=== PATIENT | female | born 1985 | race Two or more races ===

== ENCOUNTER 2019-01-19 20:41 | Emergency (ER) | payer OTHER ==
[2019-01-19] MEDS ORDERED: NS 0.9% 1000 ML** 1,000 ML IV ONE (21:03)
--- NOTE | 2019-01-19 21:07 | ED ---
GI/ HPI - HPI Summary HPI Summary: A 33 y/o female presents to [facility] with a chief complaint of vaginal bleeding for the past three days. She also c/o lower abdominal pain. At triage she rated her pain as an 8/10 in severity. She says that her LNMP was started 01/09/27 then ended abruptly at 01/13/19. Then on 01/16/19 she said that her vaginal bleeding started again and that the bleeding was different and she may have bled a clot. She notes that she had similar symptoms in May 2018 when she had an ectopic in [place]. She denies a Hx of HTN or DM, and denies taking any medications. She has a FHx of HTN and reports EtOH use occasionally on the weekends. - History of Current Complaint Chief Complaint: EDAbdPain Time Seen by Provider: 01/19/19 21:03 Stated Complaint: HEAVY BLEEDING PER PT Hx Obtained From: Patient Onset/Duration: Started Days Ago, Still Present Timing: Constant, Lasting Days Severity: Severe Current Severity: Severe Vaginal Bleeding Description: Clots Pain Intensity: 8 - out of 10 Location of Pain: Other - lower abdominal pain Pain Characteristics: Unable to describe Associated Signs and Symptoms: Positive: Abdominal Pain. Negative: Fever Aggravating Factor(s): Nothing Alleviating Factor(s): Nothing - Allergy/Home Medications Allergies/Adverse Reactions: Allergies Allergy/AdvReac Type Severity Reaction Status Date / Time No Known Allergies Allergy Verified 01/19/19 20:47 PMH/Surg Hx/FS Hx/Imm Hx Endocrine/Hematology History: Denies: Hx Diabetes Cardiovascular History: Denies: Hx Hypertension Sensory History: Denies: Hx Deafness EENT History: Denies: Hx Deafness Infectious Disease History: No Infectious Disease History: Denies: Traveled Outside the [place] in Last 30 Days - Family History Known Family History: Positive: Hypertension - grandmother Negative: Diabetes - Social History Alcohol Use: Occasionally - on the weekend Hx Substance Use: No Substance Use Type: Reports: None Hx Tobacco Use: No Smoking Status (MU): Never Smoked Tobacco Review of Systems Negative: Fever Positive: Abdominal Pain Positive: other - positive: vaginal bleeding All Other Systems Reviewed And Are Negative: Yes Physical Exam - Summary Physical Exam Summary: Appearance: Well-appearing, Well-nourished, lying in bed comfortably Skin: Warm, dry, no obvious rash Eyes: sclera anicteric, no conjunctival pallor ENT: mucous membranes moist, pharynx appears normal Neck: Supple, nontender Respiratory: Clear to auscultation, no signs of respiratory distress Cardiovascular: Normal S1, S2. No murmurs. Normal distal pulses in tibial and radial bilaterally. Abdomen: Soft, lower abdominal tenderness without peritoneal signs, normal active bowel sounds present Musculoskeletal: Normal, Strength/ROM Intact Neurological: A&Ox3, awake and alert, mentation is normal, speech is fluent and appropriate Psychiatric: affect is normal, does not appear anxious or depressed Triage Information Reviewed: Yes Vital Signs On Initial Exam: Initial Vitals Temp Pulse Resp BP Pulse Ox 97.9 F 79 18 128/73 97 01/19/19 20:45 01/19/19 20:45 01/19/19 20:45 01/19/19 20:45 01/19/19 20:45 Vital Signs Reviewed: Yes Diagnostics - Vital Signs Vital Signs Temp Pulse Resp BP Pulse Ox 01/19/19 20:45 97.9 F 79 18 128/73 97 - Laboratory Result Diagrams: 01/19/19 21:16 01/19/19 21:16 Lab Statement: Any lab studies that have been ordered have been reviewed, and results considered in the medical decision making process. Re-Evaluation - Re-Evaluation First Eval Re-Evaluation Time: 22:29 GIGU Course/Dx - Course Course Of Treatment: A 33 y/o female presents to [facility] with a chief complaint of vaginal bleeding for the past three days. She also c/o lower abdominal pain. The physical exam revealed lower abdominal tenderness without peritoneal signs. In the ED course the patient was given Sodium Chloride IV. Blood work and chemistries obtained and are WNL. The patient will be discharged and follow up with Dr. Mackey. The patient is agreeable with this plan. - Diagnoses Provider Diagnoses: Dysfunctional uterine bleeding Discharge - Sign-Out/Discharge Documenting (check all that apply): Patient Departure - DC Patient Received Moderate/Deep Sedation with Procedure: No - Discharge Plan Condition: Good Disposition: HOME Patient Education Materials: Dysfunctional Uterine Bleeding (ED) Referrals: Cristina Mackey MD [Medical Doctor] - 4 Days (if not improving) Additional Instructions: Your blood test was negative, which essentially rules out an ectopic . - Billing Disposition and Condition Condition: GOOD Disposition: Home - Attestation Statements Document Initiated by Scribe: Yes Documenting Scribe: Vishal Katz Provider For Whom John is Documenting (Include Credential): David Devi MD Scribe Attestation: I, Vishal Katz, scribed for David Devi MD on 01/20/19 at 0157. Scribe Documentation Reviewed: Yes Provider Attestation: The documentation as recorded by the Vishal ashford accurately reflects the service I personally performed and the decisions made by me, David Devi MD Status of Scribe Document: Viewed
[2019-01-19 21:46] LABS: ABS Lymphocytes 2.6 10^3/ul (1.0-4.8); ABS Monocytes 0.4 10^3/ul (0-0.8); ABS Neutrophils 4.3 10^3/ul (1.5-7.7); Eosinophil % 0.5 %; Hematocrit 38 % (35-47); Hemoglobin 12.7 g/dL (12.0-16.0); Mean Corpuscular HGB Conc 34 g/dL (31-36); Mean Corpuscular Hemoglobin 31 pg (27-31); Mean Corpuscular Volume 92 fL (80-97); Mean Platelet Volume 7.8 fL (7.4-10.4); Nucleated Red Blood Cells % 0.1; Platelet Count 240 10^3/uL (150-450); Red Blood Count 4.08 10^6 /uL (3.70-4.87); Red Cell Distribution Width 13 % (10-15); White Blood Count 7.4 10^3/uL (3.5-10.8)
[2019-01-19 22:04] LABS: ALT 13 U/L (7-52); AST 18 U/L (13-39); Albumin 4.4 g/dL (3.2-5.2); Albumin/Globulin Ratio 1.4 (1-3); Alkaline Phosphatase 74 U/L (34-104); Anion Gap 7 mmol/L (2-11); BUN/Creatinine Ratio 33.9 (8-20); Blood Urea Nitrogen 19 mg/dL (6-24); CO2 Carbon Dioxide 23 mmol/L (22-32); Calcium 9.4 mg/dL (8.6-10.3); Chloride 109 mmol/L (101-111); EGFR African American 149.9 (>60); EGFR Non-African American 123.9 (>60); Globulin 3.1 g/dL (2-4); Glucose 95 mg/dL (70-100); Sodium 139 mmol/L (135-145); Total Protein 7.5 g/dL (6.4-8.9)
[2019-01-19 22:10] LABS: HCG Pregnancy < 0.60 mIU/mL
[2019-01-19 22:46] VITALS: BP 114/71
== END 2019-01-19 22:45 | disposition home or self-care (01) ==
LOC: ED 20:41
DX: N93.8 Other specified abnormal uterine and vaginal bleeding (principal); R10.9 Unspecified abdominal pain; N93.9 Abnormal uterine and vaginal bleeding, unspecified
CPT/HCPCS: 36415; 80053; 84702; 85025; 86850; 86900; 86901; 96360; 99282

== ENCOUNTER 2019-07-14 00:58 | Emergency (ER) | payer OTHER ==
--- OUTSIDE RECORDS SUMMARY | 2019-07-14 01:05 | XMS REPORT | Continuity of Care Document ---
:1985 Author Organization [facility] Address [address] [place] [address] Phone Care Team Providers Name Role Phone Bethany Perez Unavailable Unavailable Allergies, Adverse Reactions, Alerts Substance Reaction Status No Known Allergies Active Medications Medication Instructions Dosage Effective Dates Status Comments (start - stop) Metrogel Vaginal insert 1 - Active 0.75 % applicatorful by vaginal route qhs x5 RANITIDINE HCL Not Available - Active (unknown strength) Problems Condition Effective Dates (start - Clinical Status Comments stop) Pelvic and perineal pain Irregular menstruation, unspecified Human immunodeficiency virus [HIV] - counseling Encounter for test, result negative Pelvic and perineal pain Acute vaginitis Procedures Procedure Date No information Results Test Name Date and Time Measure Units Reference Range Abnormal Flag Status Comments No information Advance Directives Directive Yes / No Effective Date File Name No information Encounters Encounter Practice Location Reason(s) Diagnoses Date Provider Providers Description For Visit Copied on Encounter [facility] [place] [address] [place]. [facility] [address] [place], [address] [facility], , [place], [place], [address]. [id number], tel:[phone] tel:[phone] [facility]ineal [facility] [place] painIrregular 0-[address] Gregoria. [facility] menstruation, [address] unspecified [place], [address] [facility], , [place], [place], [address]. [id number], tel:[phone] tel: [phone] [facility] [place] immunodeficiency [address] Bethany. Provider: Sarah virus [HIV] [address] counseling[facility]ounter [facility], [address] [place] [address] [place] result [place], [address], [place], [place]vic [place], [place], [place]ine[place]ute [address]. [place], [address]. [id number], vaginitis tel: tel: [phone] tel: [phone] Family History Family Member Diagnosis Age At Onset No information Immunizations Vaccine Date Status Comments No information Payers Payer name Insurance type Covered green party ID Authorization(s) Drew GENTILE [facility] CI [id number] Social History Type Description Quantity Date Captured Comments Alcohol Use Details Unknown Caffeine Use Details Unknown Tobacco Use Status Unknown Smoking Status Never smoker Sex Female Vital Signs Date / Height Weight BMI Pulse Blood Temperature Respiratory Body Head BMI Pulse Inhaled Time: Rate Pressure Rate Surface Circumference percentile Ox Ox Area No information Chief Complaint And Reason For Visit No information Reason For Referral Reason For Referral No information Plan Of Treatment Date Type Action Status Referral Ordered: ordered Pelvic Ultrasound (related to Pelvic and perineal pain) Referral Ordered: ordered Referrals: Pelvic Ultrasound History Of Present Illness Encounter Date Complaint History Of Present Illness No information Functional Status Date Functional Assessment No information Medications Administered Medication Instructions Dosage Effective Dates (start - stop) Status Comments No information Instructions Date Instruction Additional Information No information Assessments Type Assessment Date No information Goals Health Concern Goal Type Priority Status Date No information Medical Equipment Description Device Attalla Device Identifier Effective Dates (start - stop ) Status No information Mental Status Date Cognitive Assessment No information Health Concerns Observation Date No information Concern Status Date No information
--- OUTSIDE RECORDS SUMMARY | 2019-07-14 01:05 | XMS REPORT | Continuity of Care Document ---
:1985 External Reference #:[id number] Author Name Carmen Turner PA-C Address [address] [place], [place] [address] Care Team Providers Name Role Phone Tracey Gomes NP Care Team Information Architectural Inspector [phone] Problems Active Problems Provider Date Weight decreased Carmen Turner PA-C Onset: 06/24/2019 Digestive symptom Carmen Turner PA-C Onset: 06/24/2019 Generalized abdominal pain Carmen Turner PA-C Onset: 06/24/2019 Social History Type Date Description Comments Sex Unknown Tobacco Use Start: Unknown Patient has never smoked Smoking Status Reviewed: 06/24/19 Patient has never smoked Allergies, Adverse Reactions, Alerts Description No Known Drug Allergies Medications Active Medications SIG Qnty Indications Ordering Provider Date Peg use as directed 4000ml R10.84 Laine 06/24/2019 3350/Electrolytes MD Ata 240gm Solution Rec Dicyclomine HCL 1-2 caps by mouth 270caps R10.84 Laine 06/24/2019 10mg up to 4 times a MD Ata Capsules day as needed for cramping/pain Nexium 1 by mouth every 30caps K29.00 Tracey Gomes NP 06/15/[address] Elizabeth 08/08 Take One Tablet Unknown 1-20mg-mcg By Mouth Every Tablets Day For 3 Weeks Then Take 1 Week Off Immunizations Description No Information Available Vital Signs Date Vital Result Comment 06/24/2019 8:13am Height 64.5 inches 5'4.50" Weight 173.00 lb BP Systolic 127 mmHg BP Diastolic 69 mmHg Heart Rate 63 /min BMI (Body Mass Index) 29.2 kg/m2 Results Test Acquired Date Facility Test Result H/L Range Note Lab Results 06/15/2019 N2N/CCD Import Amylase <pending> Lipase <pending> Procedures Description No Information Available Medical Devices Description No Information Available Encounters Description No Information Available Assessments Date Code Description Provider 06/24/2019 R10.84 Generalized abdominal pain Carmen Turner PA-C 06/24/2019 R19.4 Change in bowel habit Carmen Turner PA-C 06/24/2019 R63.4 Abnormal weight loss Carmen Turner PA-C Plan of Treatment Future Appointment(s):07/12/2019 9:00 am - Laine Berumen [facility] at [facility]06/24/2019 - RACHNA ChaparroCR10.84 Generalized abdominal painNew Medication:Peg 3350/Electrolytes 240 gm - use as directedDicyclomine HCL 10 mg - 1-2 caps by mouth up to 4 times a day as needed for cramping/painR19.4 Change in bowel mbezzW23.4 Abnormal weight loss Functional Status Description No Information Available Mental Status Description No Information Available Referrals Description No Information Available
--- OUTSIDE RECORDS SUMMARY | 2019-07-14 01:05 | XMS REPORT | Continuity of Care Document ---
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 [phone] Problems Description No Active Problems Social History Type Date Description Comments Sex Unknown Tobacco Use Start: Unknown Never Smoked Cigarettes ETOH Use Currently consumes "6 beers on alcohol Thursday" Recreational Drug Use Does Not Use Drugs Tobacco Use Start: Unknown Patient has never smoked Smoking Status Reviewed: 06/23/19 Patient has never smoked Exercise Type/Frequency Does not exercise Allergies, Adverse Reactions, Alerts Description No Known Drug Allergies Medications Active Medications SIG Qnty Indications Ordering Date Provider Vitamin D3 1 tablet daily, ok 90units Parisa Montilla, 04/13/2019 2000Unit to substitute any CNM Chewtabs form of tablet or chewable covered by insurance 08/08 1 by mouth every 63tabs Parisa Montilla, 04/13/2019 1-20mg-mcg day CNM Tablets Ranitidine HCL 1 tab by mouth Unknown 150mg once or twice a Tablets day as needed for reflux Curcumin 95 Unknown 500mg Capsules Grape Seed Extract Unknown 30mg Capsules Medications Administered in Office Medication SIG Qnty Indications Ordering Provider Date PT SCRN Tbco Id as Non User Sharla Medrano MD 06/23/2019 Injection PT SCRN Tbco Id as Non User Parisa Montilla CNM 04/13/2019 Injection Immunizations Description No Information Available Vital Signs Date Vital Result Comment 06/23/2019 1:15pm BP Systolic 120 mmHg BP Diastolic 64 mmHg Height 63.25 inches 5'3.25" Weight 173.00 lb BMI (Body Mass Index) 30.4 kg/m2 Last Menstrual Period [id number] Parity 3 04/13/2019 1:59pm BP Systolic 106 mmHg BP Diastolic 64 mmHg Height 63.25 inches 5'3.25" Weight 168.00 lb BMI (Body Mass Index) 29.5 kg/m2 Results Test Acquired Date Facility Test Result H/L Range Note Laboratory test 04/13/2019 [facility] Cytology SEE RESULT [address] [place] [address] BELOW [phone] GC/Chlamydia 04/13/2019 [facility] Chlamydia Negative [place] [address] trachomatis Asia [phone] Neisseria gonorrhoeae (GC) Asia Negative Negative 1 SEE RESULT BELOW Name: GIANNI DESHAWN RING : [address]: Parisa Montilla CNM Acct: [id number] Unit: [id number] AGE: 33 Location: [facility] Re04/13/19 SEX: F Status: REG REF SPEC: [id number] FELIX: 04/13/19-[address] [facility] [address]: Parisa Montilla CNM REQ: [id number] RECD: 04/14/19-1124 STATUS: KISHAN FALL DR: Eva Primary Care Phys,NOPCP _ ORDERED: TP IMAGE ANALYS, PACKING AND SHIPPING CLERK PHYS INTERP, HPV/Thin Prep COMMENTS: [id number] FINAL DIAGNOSIS EPITHELIAL CELL ABNORMALITIES Low grade squamous intraepithelial lesion (LSIL) HPV RESULTS Date Time Test Result Flag (u) Normal Range 04/13/19 1608 HPV ASIA Negative Negative The high-risk HPV types detected by the assay include: 16, 18, 31, 33, 35, 39, 45, 51, 52, 56, 58, 59, 66, and 68. SPECIMEN(S) RECEIVED A. Ectocervical/Endocervical CYTOLOGY ADEQUACY Specimen Adequacy: Satisfactory of evaluation Transformation zone component identified CYTOLOGY PATIENT INFORMATION Patient Information: HPV: High risk HPV RNA testing regardless of pap results. Actual Specimen Date: 04/13/19 LMP If Unknown: unknown Spec Date if unknown: unknown ?: N Post Menopausal?: N CONTINUED ON NEXT PAGE DEPARTMENT OF PATHOLOGY, [address] [place] [address] Daniel Meeks M.D. Director [facility] # [id number] Hysterectomy?: N Previous Abnormal Pap Smears?:N Signed by and Reported on: Daniel Meeks MD 7237 This Pap test was evaluated with the assistance of the [employer] Test Imaging System. Due to cytologic findings at the grain mill worker microscope, comprehensive manual rescreening by a Wall Washer may be required. The Pap Smear is a screening test designed to aid in the detection of premalignant and malignant conditions of the uterine cervix. It is not a diagnostic procedure and should not be used as the sole means of detecting cervical cancer. Both false- positive and false- negative reports do occur. Depending on your risk status, a Pap smear should be obtained and evaluated every 1-3 years. END OF REPORT DEPARTMENT OF PATHOLOGY, [address] [place] [address] Daniel Meeks M.D. 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
--- NOTE | 2019-07-14 02:02 | ED ---
Adult Trauma - HPI Summary HPI Summary: This patient is a 33 year old female presenting to [facility] with a chief complaint of injuries after a fall 3 hours ago. She states she slipped on ice and hit her head 5 hours ago and experienced pain throughout her head and face. She states she then experienced some abdominal pain and vomiting. She reports photophobia. She reports numbness on the left side of her face and dizziness. She denies vomiting. She denies loss of consciousness. She had a colonoscopy 2 days for abdominal pain and found 2 polyps. - History of Current Complaint Chief Complaint: EDHeadInjury Stated Complaint: HEAD INJURY PER PT Time Seen by Provider: 07/14/19 01:42 Hx Obtained From: Patient Mechanism of Injury: Fall Onset/Duration: Started Hours Ago Pain Intensity: 9 Pain Scale Used: 0-10 Numeric - Allergy/Home Medications Allergies/Adverse Reactions: Allergies Allergy/AdvReac Type Severity Reaction Status Date / Time No Known Allergies Allergy Verified 07/12/19 11:13 PMH/Surg Hx/FS Hx/Imm Hx Endocrine/Hematology History: Denies: Hx Diabetes Cardiovascular History: Denies: Hx Hypertension Sensory History: Denies: Hx Deafness Infectious Disease History: No Infectious Disease History: Denies: Traveled Outside the [place] in Last 30 Days - Family History Known Family History: Positive: Hypertension - grandmother Negative: Diabetes - Social History Alcohol Use: Occasionally Hx Substance Use: No Substance Use Type: Reports: None Hx Tobacco Use: No Smoking Status (MU): Never Smoked Tobacco Review of Systems - ROS Summary Review of Systems Summary: Esomeprazole Magnesium [Nexium] 40 mg PO DAILY 07/01/19 [History Confirmed 07/14] Ibuprofen TAB* [Advil TAB*] 200 mg PO Q6H PRN 07/12/19 [History Confirmed ] Positive: Photophobia Positive: Abdominal Pain, Nausea. Negative: Vomiting Positive: Other - Facial pain Neurological: Other - Dizziness Positive: Headache, Numbness. Negative: Syncope All Other Systems Reviewed And Are Negative: Yes Physical Exam - Summary Physical Exam Summary: General: Well-developed, Well-nourished FEMALE in mild discomfort. HEENT: Normocephalic, Atraumatic. (-) Raccoons Eyes, (-) Battles Sign, (-) hemotympanum Eyes: Conjuctiva normal, PERRL. Ears: TMs within normal limits. Nares: (-) discharge, (-) erythema. Oropharynx: Clear, mucous membranes moist, (-) exudates. Neck: Soft, FROM, (-) lymphadenopathy, (-) thyromegaly, (-) JVD. Cardiovascular: Normal sinus rhythm, (-) murmur. Lungs: Clear to auscultation bilaterally (-) wheezes, (-) rales, (-) rhonchi. Abdomen: Soft, non-tender, non-distended, (-) organomegaly, normal bowel sounds. Neuro: Alert and oriented x3, no focal deficits, Cooperative. Musculoskeletal: (-) spinal tenderness, (-) deformity. Skin: Warm, dry, (-) rash. Psychiatric: Mood normal, affect normal. Triage Information Reviewed: Yes Vital Signs On Initial Exam: Initial Vitals Temp Pulse Resp BP Pulse Ox 97.9 F 79 18 123/79 97 07/14/19 01:01 07/14/19 01:01 07/14/19 01:01 07/14/19 01:01 07/14/19 01:01 Vital Signs Reviewed: Yes Procedures - Sedation Patient Received Moderate/Deep Sedation with Procedure: No Diagnostics - Vital Signs Vital Signs Temp Pulse Resp BP Pulse Ox 07/14/19 01:24 78 95 07/14/19 01:23 82 116/70 94 07/14/19 01:01 97.9 F 79 18 123/79 97 - Laboratory Lab Statement: Any lab studies that have been ordered have been reviewed, and results considered in the medical decision making process. Re-Evaluation - Re-Evaluation First Eval Re-Evaluation Time: 03:17 Change: Improved Comment: States she is feeling a little bit better, has not received Toradol yet. Adult Trauma Course/Dx - Course Course Of Treatment: 33-year-old female presents with severe headache after fall. She states earlier tonight she slipped on ice and fell hitting her posterior head. She states she wasn't able to get up initially. Had to have help getting up. Did not lose consciousness. She describes some nausea, light sensitivity, and some dizziness since the fall. She has not taken anything for the pain. Physical exam was within normal limits. No neurological deficits. Patient received Toradol with good improvement of her symptoms. Discharged home. Follow-up with PCP. Follow-up sooner for any worsening symptoms. - Diagnoses Provider Diagnoses: Concussion Discharge ED - Sign-Out/Discharge Documenting (check all that apply): Patient Departure - Discharge - Discharge Plan Condition: Stable Disposition: HOME Patient Education Materials: Concussion (ED) Referrals: No Primary Care Phys,NOPCP [Primary Care Provider] - Additional Instructions: Return to ED with new or worsening symptoms. - Billing Disposition and Condition Condition: STABLE Disposition: Home - Attestation Statements Document Initiated by Umaibe: Yes Documenting Scribe: Holger Rodgers Provider For Whom John is Documenting (Include Credential): Stephanie Baker MD Scribe Attestation: IHolger, scribed for Stephanie Baker MD on 07/14/19 at 0523. Scribe Documentation Reviewed: Yes Provider Attestation: The documentation as recorded by the scribe, Holger Rodgers accurately reflects the service I personally performed and the decisions made by me, Stephanie Baker MD Status of Scribe Document: Viewed
[2019-07-14] MEDS ORDERED: Ketorolac INJ* 30 MG/ML 1 ML VIAL IV PUSH ONE (02:08)
[2019-07-14 04:43] VITALS: BP 101/56
== END 2019-07-14 04:42 | disposition home or self-care (01) ==
LOC: ED 00:58
DX: S06.0X9A Concussion with loss of consciousness of unspecified duration, initial encounter (principal); W00.0XXA Fall on same level due to ice and snow, initial encounter; Y92.9 Unspecified place or not applicable; Z79.899 Other long term (current) drug therapy
CPT/HCPCS: 96372; 99282; J1885